=== PATIENT | female | born 1980 | race Caucasian/White ===

== ENCOUNTER → 2016-05-22 | Outpatient (CLI) | payer OTHER ==
--- NOTE | 2016-05-22 18:15 | REP ---
LEFT KNEE FIVE VIEWS: HISTORY: Contusion. There is no acute fracture or dislocation. The joint spaces are normal in appearance. IMPRESSION: There is no acute fracture or dislocation. Signed by Boogie George MD 05/23/2016 08:20 A
== END ==
LOC: M WUC 15:00
PROVIDERS: ATTEND Physician Assistant
DX: S80.02XA Contusion of left knee, initial encounter (principal); X58.XXXA Exposure to other specified factors, initial encounter; Y92.89 Other specified places as the place of occurrence of the external cause; Y93.89 Activity, other specified; Y99.8 Other external cause status

== ENCOUNTER → 2016-07-17 | Outpatient (REF) | payer OTHER | LOC: M SFHCWAGY 11:05 | PROVIDERS: ATTEND Nurse Practitioner Women's Health | DX: Z12.4 Encounter for screening for malignant neoplasm of cervix (principal) ==

== ENCOUNTER → 2016-07-27 | Outpatient (REF) | payer OTHER | LOC: M LAB REF 22:10 | PROVIDERS: ATTEND Physician Assistant Medical | DX: N39.0 Urinary tract infection, site not specified (principal) ==

== ENCOUNTER → 2016-12-17 | Outpatient (CLI) | payer OTHER ==
--- NOTE | 2016-12-17 16:26 | REP ---
UNILATERAL RIGHT RIBS, PA CHEST: HISTORY: Contusion. The lungs are clear. The heart is normal in size. The pulmonary vasculature is normal in appearance. The bony structure is intact. IMPRESSION:No acute disease. Signed by Boogie George MD 12/17/2016 04:28 P
== END ==
LOC: M WUC 11:53
PROVIDERS: ATTEND Physician Assistant
DX: S20.211A Contusion of right front wall of thorax, initial encounter (principal); X58.XXXA Exposure to other specified factors, initial encounter; Y92.89 Other specified places as the place of occurrence of the external cause; Y93.89 Activity, other specified; Y99.8 Other external cause status

== ENCOUNTER → 2017-10-02 | Outpatient (CLI) | payer OTHER | LOC: M WHC 13:44 | DX: D25.2 Subserosal leiomyoma of uterus (principal); N88.8 Other specified noninflammatory disorders of cervix uteri; N93.9 Abnormal uterine and vaginal bleeding, unspecified | CPT/HCPCS: 76830 ==

== ENCOUNTER → 2017-11-11 | Outpatient (REF) | payer OTHER ==
[2017-11-14 14:57] LABS: HPV HYBRID CAPTURE II Negative (Negative)
== END ==
LOC: M SFHCWAGY 09:24
DX: Z12.4 Encounter for screening for malignant neoplasm of cervix (principal)
CPT/HCPCS: G0123

== ENCOUNTER → 2018-02-25 | Outpatient (REF) | payer OTHER | LOC: M LAB REF 17:27 | DX: D25.9 Leiomyoma of uterus, unspecified (principal) | CPT/HCPCS: 88305 ==

== ENCOUNTER 2018-04-24 05:52 | Day surgery (SDC) | payer BC ==
[~2018-04-24] VITALS: Ht 154.9 cm; Wt 65.3 kg
[~2018-04-24 05:52] MED LIST: HYDR-3719 PO; PERCOCET PO; SOMA350T PO; XANA1TAB2 PO
[2018-04-24 06:24] LABS: HEMATOCRIT 40.2 % (36.0-47.0); HEMOGLOBIN 13.3 g/dl (12.0-15.5); MEAN CORPUSCULAR HEMOGLOBIN 31.5 pg (27.0-33.0); MEAN CORPUSCULAR HGB CONC 33.1 g/dl (32.0-36.5); MEAN CORPUSCULAR VOLUME 95.3 fl (80.0-96.0); PLATELET COUNT, AUTOMATED 396 10^3/uL (150-450); RED BLOOD COUNT 4.22 10^6/uL (4.00-5.40); WHITE BLOOD COUNT 9.2 10^3/uL (4.0-10.0)
[2018-04-24] MEDS ORDERED: IBUP-359 PO (06:53)
[2018-04-24] MEDS ORDERED: LR 1,000 ML IV SCH ×3 (07:00→10:15)
[2018-04-24] MEDS ORDERED: ROCURONIUM BROMIDE 50 MG/5 ML VIAL As Ordered ONE ×2 (07:10→08:18)
[2018-04-24] MEDS ORDERED: ONDANSETRON 4MG/2ML VIAL (J2405) As Ordered ONE (07:10)
[2018-04-24] MEDS ORDERED: PROPOFOL 200 MG/20 ML VIAL As Ordered ONE (07:10)
[2018-04-24] MEDS ORDERED: LIDOCAINE 2% INJ 100 MG/5 ML SDV (FOR ANES.) As Ordered ONE (07:10)
[2018-04-24] MEDS ORDERED: dexameTHASONE 4 MG/ML 1ML VIAL (J1100) As Ordered ONE (07:10)
[2018-04-24] MEDS ORDERED: fentaNYL 100 MCG/2 ML INJECTION (J3010) As Ordered ONE ×2 (07:11→10:02)
[2018-04-24] MEDS ORDERED: MIDAZOLAM INJ 2 MG/2 ML VIAL (J2250) As Ordered ONE (07:11)
[2018-04-24] MEDS ORDERED: HYDROmorphone HCL 2 MG/ML 1ML VIAL (J1170) As Ordered ONE (07:12)
[2018-04-24] MEDS ORDERED: BUPIVACAINE HCL 0.25% 30 ML VIAL As Ordered ONE (07:13)
[2018-04-24] MEDS ORDERED: METHYLENE BLUE 0.5% (5MG/ML) 10 ML AMP (PROVAYBLUE)(Q9968 PER 1MG) As Ordered ONE (07:13)
[2018-04-24] MEDS ORDERED: SUGAMMADEX SODIUM 500 MG/5 ML VIAL (BRIDION) As Ordered ONE (08:21)
[2018-04-24] MEDS ORDERED: KETOROLAC 60 MG/2 ML VIAL (J1885) As Ordered ONE (08:21)
[2018-04-24] MEDS ORDERED: ePHEDrine SULFATE 25 MG/5 ML(5MG/ML) SYRINGE As Ordered ONE (08:56)
[2018-04-24] MEDS ORDERED: PERCOCET 5MG/325MG TAB As Ordered ONE (10:02)
[2018-04-24] MEDS: PERCOCET 5MG/325MG TAB PO PRN ×2 (10:05→10:35)
[2018-04-24] MEDS: fentaNYL 100 MCG/2 ML INJECTION (J3010) IV PRN ×2 (10:05→10:10)
[2018-04-24] MEDS ORDERED: MORPHINE 4 MG/ML 1ML VIAL/SYRINGE (J2270) IV PRN (10:15)
[2018-04-24] MEDS ORDERED: PERCOCET 5MG/325MG TAB PO PRN ×2 (10:15)
[2018-04-24] MEDS ORDERED: ONDANSETRON 4MG/2ML VIAL (J2405) IV PRN (10:15)
[2018-04-24] MEDS ORDERED: PROMETHAZINE INJ 25 MG/ML VIAL (J2550) IV PRN (10:15)
[2018-04-24] MEDS ORDERED: zolPIDEM TARTRATE 10MG TAB PO PRN (10:15)
[2018-04-24] MEDS ORDERED: HYDROMORPHONE HCL 0.5 MG/ 0.5 ML SYRINGE (J1170 PER 1) IV PRN (10:15)
--- NOTE | 2018-04-24 10:41 | RO ---
DATE OF PROCEDURE: 04/24/2018 PREPROCEDURE DIAGNOSIS: 1. Abnormal uterine bleeding. 2. Fibroid uterus. POSTPROCEDURE DIAGNOSIS: 1. Abnormal uterine bleeding. 2. Fibroid uterus. PROCEDURE: Robotic assisted laparoscopic hysterectomy. Bilateral salpingectomy. Cystoscopy. SURGEON: Dr. Rosalind Thakkar PLANT [employer]EDER SCIENTIST: Gwendolyn Honeycutt NP ANESTHESIA: General endotracheal anesthesia. ESTIMATED BLOOD LOSS: 50 mL. INTRAVENOUS FLUIDS: 1500 mL lactated Ringer solution. URINE OUTPUT: 100 mL. PREOPERATIVE ANTIBIOTICS: 2 grams of Ancef. OPERATIVE FINDINGS: Patient with bilateral Filshie clips consistent with history, normal appearing adnexa, large approximately 5 cm pedunculated fundal right fibroid. CYSTOSCOPIC FINDINGS: Normal bladder mucosa. Bilateral ureteral jets. No foreign objects identified on cystoscopy. DESCRIPTION OF PROCEDURE: After informed consent was obtained and written content was reviewed, the patient was brought to the operating room where general endotracheal anesthesia was obtained. She was then placed in lithotomy position and was prepped and draped in a normal sterile fashion. A time out in the operating room was then performed identifying the patient, the procedure to be performed, as well as drug allergies. A speculum was then placed revealing the cervix. The anterior and posterior aspects of the cervix were stitched with #0 Vicryl. The uterus was sounded to 8 cm. An extra large VCare uterine manipulator was advanced through the cervical os for means to manipulate the uterus. The cervical cap as well as the vaginal sleeve was applied to the vagina. The speculum was removed. The Henry catheter was then placed and set to gravity. Gloves were changed. Attention was turned to the patient's abdomen where a Veress needle was placed through the umbilicus and a pneumoperitoneum was obtained with CO2 gas. The supraumbilical area was infused with 0.25% Marcaine. An incision was made in this area. An 11 mm trocar and sleeve was advanced through this incision. The laparoscope was then replaced revealing intra-abdominal placement. Three additional port sites were placed, two to the left side of the patient's abdomen and one to the right. These areas were infused with 0.25% Marcaine and in each one of these areas an incision was made and 8 mm trocars and sleeves advanced through each one of these incisions under direct visualization. Next, the da Serge was then docked utilizing a camera arm and two operative arms. The patient's abdomen was then surveyed with the above noted findings. Bilateral salpingectomies were then performed. The right fallopian tube was placed on traction and it was transected at the level of the uterus. The mesosalpinx was cauterized and ligated with good hemostasis noted. The specimen was then brought out through the port site along with the Filshie clip. In a similar fashion, the left fallopian tube was placed on traction utilizing a vessel sealer the left fallopian tube was transected at the level of the uterus. The mesosalpinx was further dissected using the vessel sealer and the specimen was brought out through the port site along with the Filshie clip. Next, the utero-ovarian ligaments were cauterized and ligated with good hemostasis noted. The round ligaments were then cauterized and ligated with good hemostasis noted. The anterior lip of the broad ligaments were then cauterized and ligated and dissected along the bladder creating a bladder flap. The remainder of the broad and cardinal ligaments were then cauterized and ligated with good hemostasis noted. The uterine vessels were then skeletonized bilaterally and were cauterized and ligated using the vessel sealer with good hemostasis noted. Next, anterior and posterior colpotomies were made utilizing monopolar scissors. The uterus was then brought out through the vaginal incision. The surgical sites were inspected and noted to be hemostatic. The vaginal cuff was then closed with #2-0 V-loc system in a running fashion. The surgical sites were irrigated and suctioned. Tesfaye was applied over the surgical field. The pneumoperitoneum was then released. Next, the cystoscopy was performed utilizing a 70 degrees scope. This was advanced transurethrally through the bladder. The bladder was surveyed showing normal bladder mucosa and no foreign bodies. Bilateral ureteral were observed. The cystoscope was then removed. The bladder was drained. The gloves were changed. Attention was turned to the patient's abdomen where all four port sites were closed with #4-0 Monocryl and dressed with Dermabond. The patient was then taken out of lithotomy position and was awakened from general anesthesia and taken to recovery in stable condition. Counts were correct. Gwendolyn Honeycutt, my rn medical surgical, played an essential role in the operation. She assisted with port placement, tissue retraction and identification of structures, as well as, wound closure.
[2018-04-24 11:00] VITALS: BP 125/63
[2018-04-24 12:00] VITALS: BP 122/76
[2018-04-24 13:00] VITALS: BP_SYST 119; BP_SYST 122; BP_DIAS 74; BP_DIAS 76
[2018-04-24 13:30] VITALS: BP 103/61
[2018-04-24] MEDS ORDERED: KETOROLAC 30 MG/ML VIAL (J1885) IV SCH (15:00)
== END 2018-04-24 14:50 | disposition home or self-care (01) ==
LOC: M SDC 05:52 → M PED 11:16 → M SDC 14:50
PROVIDERS: ATTEND Obstetrics & Gynecology
DX: N92.6 Irregular menstruation, unspecified (principal); D25.1 Intramural leiomyoma of uterus; D25.2 Subserosal leiomyoma of uterus; N72 Inflammatory disease of cervix uteri; K21.9 Gastro-esophageal reflux disease without esophagitis; Z88.2 Allergy status to sulfonamides; F41.9 Anxiety disorder, unspecified; Z79.899 Other long term (current) drug therapy; F17.210 Nicotine dependence, cigarettes, uncomplicated
CPT/HCPCS: 36415; 58571; 85027; 86850; 86900; 86901; 88309; J0690; J1100; J1170; J1885; J2250; J2405; J3010

== ENCOUNTER 2018-09-30 08:10 | Inpatient (IN) | payer BC ==
[~2018-09-30] VITALS: Ht 154.9 cm; Wt 69.7 kg
[~2018-09-30 08:10] MED LIST changes: +IBUP-359 PO
[2018-09-30 09:31] LABS: HEMATOCRIT 38.4 % (36.0-47.0); HEMOGLOBIN 12.5 g/dl (12.0-15.5); MEAN CORPUSCULAR HEMOGLOBIN 31.5 pg (27.0-33.0); MEAN CORPUSCULAR HGB CONC 32.6 g/dl (32.0-36.5); MEAN CORPUSCULAR VOLUME 96.7 fl (80.0-96.0); PLATELET COUNT, AUTOMATED 399 10^3/uL (150-450); RED BLOOD COUNT 3.97 10^6/uL (4.00-5.40); WHITE BLOOD COUNT 10.7 10^3/uL (4.0-10.0)
[2018-09-30] MEDS ORDERED: HYDR-3719 PO (09:38)
[2018-09-30] MEDS ORDERED: CYCL10TA PO (09:38)
[2018-09-30] MEDS ORDERED: LORA1TAB4 PO (09:38)
[2018-09-30] MEDS ORDERED: PHEN-239 PO (09:38)
[2018-09-30 09:56] LABS: AMPHETAMINES LEVEL URINE POSITIVE (NEGATIVE); BARBITURATES URINE NEGATIVE (NEGATIVE); BENZODIAZEPINES URINE NEGATIVE (NEGATIVE); CANNABINOIDS URINE NEGATIVE (NEGATIVE); COCAINE METABOLITE URINE NEGATIVE (NEGATIVE); METHADONE URINE NEGATIVE (NEGATIVE); OPIATES URINE POSITIVE (NEGATIVE); PHENCYCLIDINE URINE NEGATIVE (NEGATIVE)
[2018-09-30 10:07] LABS: ACETAMINOPHEN LEVEL < 2.0 UG/ML (10.0-30.0); ALBUMIN 4.1 GM/DL (3.2-5.2); ALT/SGPT 36 U/L (12-78); BILIRUBIN,DIRECT < 0.1 MG/DL (0.0-0.2); BILIRUBIN,TOTAL 0.2 MG/DL (0.2-1.0); BLOOD UREA NITROGEN 6 MG/DL (7-18); CALCIUM LEVEL 9.5 MG/DL (8.5-10.1); CARBON DIOXIDE LEVEL 29 MEQ/L (21-32); CHLORIDE LEVEL 104 MEQ/L (98-107); CREATININE FOR GFR 0.77 MG/DL (0.55-1.30); ETHYL ALCOHOL (ETHANOL) < 0.003 % (0.000-0.010); GLOMERULAR FILTRATION RATE > 60.0 (>58); GLUCOSE, FASTING 94 MG/DL (70-100); SALICYLATE LEVEL 3.4 MG/DL (5.0-30.0); SODIUM LEVEL 139 MEQ/L (136-145); THYROID STIMULATING HORMONE 0.934 uIU/ML (0.358-3.740); TOTAL PROTEIN 7.7 GM/DL (6.4-8.2)
[2018-09-30] MEDS ORDERED: LORazepam 1 MG TAB PO STA (13:27)
[2018-09-30] MEDS ORDERED: MAALOX 30 ML SUSP *UDC PO PRN (14:30)
[2018-09-30] MEDS ORDERED: MOM 30ML SUSPENSION UDC PO PRN (14:30)
[2018-09-30] MEDS ORDERED: traZODone 50 MG TAB PO PRN (14:30)
[2018-09-30 17:08] VITALS: BP 147/77
[2018-09-30] MEDS: OLANZapine ORAL DISINTEGRATING TAB 5MG PO PRN (21:30)
[2018-10-01 06:44] VITALS: BP 116/85
--- NOTE | 2018-10-01 07:40 | HPEPDOC ---
General Date of Admission Sep 30, 2018 at 14:21 Date of Service: Oct 01, 2018 Attending Physician: MEMO OQUENDO MD Chief Complaint The patient is a 38-year-old female admitted with a reason for visit of Dissociative Disorder. History of Present Illness Patient is a 38-year-old female, brought to the emergency room by family member who felt patient needed to speak to someone about her symptoms. Patient has not been sleeping. Apparently patient was involved in testifying in a murder trial, a long time ago which led to a conviction. Now that the suspect is out of [facility] and lives in this town. Patient has reported to friends and family sightings of someone in her yard driveway, or car. Admitted on account of possible paranoia with visual hallucinations. On assessment, she denies chest pain, shortness of breath, weakness, abdominal pain, nausea, chills or fever. Home Medications Scheduled Phentermine HCl (Phentermine HCl) 37.5 Mg Capsule, 37.5 MG PO DAILY, (Reported) Scheduled PRN Cyclobenzaprine HCl (Cyclobenzaprine HCl) 10 Mg Tablet, 10 MG PO TID PRN for SPASMS, (Reported) Hydrocodone/Acetaminophen (Hydrocodone-Acetamin 10-325 mg) 1 Each Tablet, 1 TAB PO Q4H PRN for PAIN, (Reported) Lorazepam (Lorazepam) 1 Mg Tablet, 1 MG PO BID PRN for ANXIETY/AGITATION, (Reported) Allergies Coded Allergies: Sulfa (Sulfonamide Antibiotics) (Verified Allergy, Unknown, rash/itching, 09/30/18) bupropion (Verified Allergy, Unknown, itching, 09/30/18) Past Medical History Medical History Anxiety Nicotine dependence Surgical History Hysterectomy Tubal ligation Cholecystectomy Family History Father: Atrial fibrillation, hyperlipidemia Social History Smokes 1/4 PPD cigarettes per day, occasional alcohol intake, denies polysubstance abuse A-FIB/CHADSVASC A-FIB History Current/History of A-Fib/PAF?: No Current PO Anticoag Therapy: No Review of Systems Other systems A 10 point pertinent review of systems was completed, negative except as stated in the history of presenting illness. Physical Examination Other physical findings GENERAL: NAD SKIN : Warm, dry intact HEENT: Atraumatic, normocephalic, PERRL, moist mucous membrane CARDIOVASCULAR: Regular rate and rhythm, S1S2, no JVD, no edema, distal pulses + and palpable RESP: CTAB, no accessory muscle use noted ABDOMEN: BS+ non distended non tender MS: no joint deformities NEURO: Alert and oriented x 3, CN2-12 grossly intact PSYCH: no anxiety or agitation, appropriate mood and affect. Vital Signs Vital Signs Date Time Temp Pulse Resp B/P (MAP) Pulse Ox O2 Delivery O2 Flow Rate FiO2 10/01/18 06:44 98.2 104 14 116/85 (95) 09/30/18 17:08 99 09/30/18 13:53 Room Air Laboratory Data Labs 24H Laboratory Tests 2 09/30/18 09:12: Nucleated Red Blood Cells % (auto) 0.0, Anion Gap 6L, Glomerular Filtration Rate > 60.0, Calcium Level 9.5, Aspartate Amino Transf (AST/SGOT) 19, Alanine Aminotransferase (ALT/SGPT) 36, Alkaline Phosphatase 121H, Total Bilirubin 0.2, Direct Bilirubin < 0.1, Total Protein 7.7, Albumin 4.1, Albumin/Globulin Ratio 1.14, Thyroid Stimulating Hormone (TSH) 0.934, Salicylates Level 3.4L, Urine Amphetamines Screen POSITIVEH, Urine Benzodiazepines Screen NEGATIVE, Urine Opiates Screen POSITIVEH, Urine Methadone Screen NEGATIVE, Acetaminophen Level < 2.0L, Urine Barbiturates Screen NEGATIVE, Urine Phencyclidine Screen NEGATIVE, Urine Cocaine Metabolite Screen NEGATIVE, Urine Cannabinoids Screen NEGATIVE, Ethyl Alcohol Level < 0.003 CBC/BMP Laboratory Tests 09/30/18 09:12 Red Blood Count 3.97 L, Mean Corpuscular Volume 96.7 H, Mean Corpuscular Hemoglobin 31.5, Mean Corpuscular Hemoglobin Concent 32.6, Red Cell Distribution Width 12.5 Assessment/Plan Anxiety disorder Nicotine dependence Paranoia with visual hallucinations Plan At this time patient has no underlying medical comorbidities requiring evaluation and management. Management of acute paranoia, anxiety, nicotine dependence, by primary team. Please reconsult medical team as needed. Plan / VTE VTE Prophylaxis Ordered?: No VTE Exclusion Mechanical Proph: Low Risk for VTE ABIOLA ZARATE Oct 01, 2018 07:40
[2018-10-01] MEDS: OLANZapine ORAL DISINTEGRATING TAB 5MG PO PRN (09:01)
[2018-10-01] MEDS: ACETAMINOPHEN TAB 650MG DOSE (2X325MG) PO PRN ×2 (09:02→14:45)
--- NOTE | 2018-10-01 15:07 | MHHPEPDOC ---
General Date Of Admission: Sep 30, 2018 Legal Status: 9.39 Chief Complaint "someone is watching me from back yard." History of Present Illness HISTORY OF THE PRESENT ILLNESS: Patient is a 38 -year-old , female, with no previous psych history who was brought to the ED by her daughter who stated "she need to talk to some one about some issues... I don't think she's a danger to herself or others" per ED. In the ED the pt endorsed insomnia, anxiety, fear, paranoia as she believes some one is watching her from her back yard and has asked multiple family members and friends to investigate each time she believes she sees a man but when investigated no one is found. Pt's daughter relates these symptoms possibly being due to the fact that the pt testified for a murder trial when she was a teen against a man who was convicted of murder due to murdering one of his and and her friends, the man serving his time and now has been out of [facility] since 11/2017 and currently lives in [place]. Pt denied SI/HI, hallucinations in the ED but did appear confused at times. Psychiatric Review of Systems Depression (2 or more weeks): depressed mood, insomnia/hypersomnia (insomnia), difficulty concentrating Raquel (4 or more days of): denies Psychosis: paranoia PTSD: history of trauma, hypervigilance Anxiety: situational anxiety, stressor related anxiety Anxiety/ 6 months or more of: restlessness, keyed up, sleep disturbance Past Psychiatric History Previous Psychiatric Diagnosis: denies Previous Psychiatric Admissions: denies Suicide Attempts: denies Psychiatric Follow-up: denies Psychiatric medications: ativan 1mg bid Past Medical History Medical Problems chronic pain takes hydrocodone, flexeril, and phentermine outpatient Head Injury: No Seizures: No Hospitalizations: No Surgeries: Yes (hysterectomy, tubal ligation, cholonoscopy) Addiction History amphetamines (Rx phentramine, utox pos), opioids (Rx hydrocodone, utox pos) Social History Childhood: [place] [facility] [place] [facility] 2 [place] home, grew up with siblings, good childhood Abuse/Trauma:referrer to HPI regarding pt testimony in murder trial Current Living Situation: lives with aandchildren in [place] Education: high school grad 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 [employer] Social Support: family, friends Legal: denies Marital: , 2 kids Mental Status Examination General Appearance: well groomed, appears stated age, hospital scubs/clothing Build: overweight Demeanor: average Eye Contact: average Activity: average Behavior: cooperative Speech: clear, spontaneous, reg/rate,rhythm,volume Mood: euthymic, anxious Mood "fine" Affect: full, appropriate, congruent, anxious Thought Process: logical/linear, intact Thought Content (Delusions): paranoia, delusions Thought Content (Other): appears paranoid Thought Content (Aggressive): none reported Perception (Hallucinations): none reported Perception (Other): none reported Cognition (Impairment of): none reported Cognition(Intelligence Est.): average Oriented: Awake, Alert, Oriented times three Insight: fair Judgment: Good Psychosis: Denies Diagnoses Paranoid Delusional d/o PTSD r/o substance induced psychosis - phentramine (now resolved) amphetamine/opiate use d/o A-FIB/CHADSVASC A-FIB History Current/History of A-Fib/PAF?: No Current PO Anticoag Therapy: No Treatment Treatment ordered: NONE Reason Anticoagulant not given: Not indicated/[id number] Assessment Pt seen and states she doesn't remember yesterday other than her daughter bring her to ED and seeing "people like lighting bugs like they were from the [place] coming at her and disappearing like it was Halloween." Per staff when pt brought to unit she was having VH of bugs and trying to pop them, agitation, confusion. Pt states she feels a lot better today "like my normal self" and denies confusion, visual hallucinations. States she took phentramine once yesterday which is most likely cause of confusion, VH, delirium. Pt does endorse paranoia and hypervigilance due to the belief of seeing some one walking around a night with a flash light watching her at night a few times for the past 1-1/5months. Does relate it to the murder felon (her ex-boyfriend as a teen) being out of [facility] and almost placed in housing at the end of her [address] until she fought the parole board to stop. Discussed starting risperdal for paranoia and agreeable, Risks/benefits discussed. Denies SI/HI, hallucinations. Feels safe here. Initial Treatment Plan 1. Patient was admitted on a 9.39 status. 2. Complete history was obtained. 3. With patients permission, family will be contacted and database will be expanded. 4. Patients medication regimen will be reviewed and changed accordingly. 5. Patient will be provided with protected environment. 6. Patient will be treated with individual, group, and milieu therapies. 7. Patient will receive supportive psych-education. 8. Discharge planning will commence immediately. 9. Outpatient follow-up treatment will be strongly recommended. 10. The initial treatment plan will focus initially on: * Depression. * Risk for suicide. * Substance abuse. 11. start risperdal 1mg qhs, prn vistaril ESTIMATED LENGTH OF STAY: 5-7 DAYS. TIME SPENT COUNSELING AND COORDINATING INITIAL CARE: 60 minutes. Vital Signs Vital Signs Date Time Temp Pulse Resp B/P (MAP) Pulse Ox O2 Delivery O2 Flow Rate FiO2 10/01/18 06:44 98.2 104 14 116/85 (95) 09/30/18 17:08 99 09/30/18 13:53 Room Air Medications Scheduled Phentermine HCl (Phentermine HCl) 37.5 Mg Capsule, 37.5 MG PO DAILY, (Reported) Scheduled PRN Cyclobenzaprine HCl (Cyclobenzaprine HCl) 10 Mg Tablet, 10 MG PO TID PRN for SPASMS, (Reported) Hydrocodone/Acetaminophen (Hydrocodone-Acetamin 10-325 mg) 1 Each Tablet, 1 TAB PO Q4H PRN for PAIN, (Reported) Lorazepam (Lorazepam) 1 Mg Tablet, 1 MG PO BID PRN for ANXIETY/AGITATION, (Reported) Allergies Coded Allergies: Sulfa (Sulfonamide Antibiotics) (Verified Allergy, Unknown, rash/itching, 09/30/18) bupropion (Verified Allergy, Unknown, itching, 09/30/18) NATALIE PHELAN DO Oct 01, 2018 15:07
[2018-10-01] MEDS ORDERED: hydrOXYzine 25 MG TAB PO PRN (15:15)
[2018-10-01 18:00] VITALS: BP 132/86
[2018-10-01] MEDS ORDERED: risperiDONE 1 MG TAB PO SCH (21:00)
[2018-10-02 07:07] VITALS: BP 120/81
[2018-10-02] MEDS: ACETAMINOPHEN TAB 650MG DOSE (2X325MG) PO PRN (11:34)
--- NOTE | 2018-10-02 12:20 | MHCRPDOC ---
[facility] Consultation Vital Signs Vital Signs Date Time Temp Pulse Resp B/P (MAP) Pulse Ox O2 Delivery O2 Flow Rate FiO2 10/02/18 07:07 98.2 103 14 120/81 (94) 09/30/18 17:08 99 09/30/18 13:53 Room Air Home Medications Current Medications Current Medications Acetaminophen (Tylenol Tab) 650 mg Q6HP PRN PO HEADACHE or DISCOMFORT Last administered on 10/02/18at 11:34; Start 09/30/18 at 14:30 Al Hydrox/Mg Hydrox/Simethicone (Mylanta) 30 ml Q4HP PRN PO HEARTBURN/INDIGESTION; Start 09/30/18 at 14:30 Home Med (Med Rec Complete!) ASDIRECTED XX ; Start 09/30/18 at 14:00; Stop 09/30/18 at 14:00; Status DC Hydroxyzine HCl (Atarax) 25 mg Q6HP PRN PO ANXIETY; Start 10/01/18 at 15:15 Lorazepam (Ativan) 1 mg STAT STAT PO Last administered on 09/30/18at 13:50; Start 09/30/18 at 13:27; Stop 09/30/18 at 13:28; Status DC Magnesium Hydroxide (Milk Of Magnesia) 30 ml DAILYPRN PRN PO CONSTIPATION; Start 09/30/18 at 14:30 Olanzapine (ZyPREXA ZYDIS) 5 mg Q4HP PRN PO AGITATION Last administered on 10/01/18at 09:01; Start 09/30/18 at 14:30 Risperidone (RisperDAL) 1 mg QHS PO Last administered on 10/01/18at 21:02; Start 10/01/18 at 21:00; Stop 10/02/18 at 10:54; Status DC Trazodone HCl (Desyrel) 50 mg QHSP PRN PO INSOMNIA Last administered on 09/30/18at 21:30; Start 09/30/18 at 14:30 Scheduled PRN Cyclobenzaprine HCl (Cyclobenzaprine HCl) 10 Mg Tablet, 10 MG PO TID PRN for SPASMS, (Reported) Hydrocodone/Acetaminophen (Hydrocodone-Acetamin 10-325 mg) 1 Each Tablet, 1 TAB PO Q4H PRN for PAIN, (Reported) Lorazepam (Lorazepam) 1 Mg Tablet, 1 MG PO BID PRN for ANXIETY/AGITATION, (Reported) Allergies Coded Allergies: Sulfa (Sulfonamide Antibiotics) (Verified Allergy, Unknown, rash/itching, 09/30/18) bupropion (Verified Allergy, Unknown, itching, 09/30/18) NICHOL SOMERS DO Oct 02, 2018 12:20
--- NOTE | 2018-10-02 12:31 | MHDSPDOC ---
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 PTSD, chronic. History of Present Illness The patient a 38-year-old woman was admitted to [facility] emergency room after demonstrating bizarre and paranoid ideation as well as dissociative symptoms. Her family were fairly concerned and brought her in for evaluation. Subsequently, after collateral information was gathered, it was revealed that the patient had recently started on phentermine, a diet supplement from her primary care doctor, due to reported difficulties with weight gain. The patient has a significant history of trauma that is complex and nuanced, but has been generally stable without significant need for psychiatric treatment for the last 25 years. Consultants Involved Hospitalist/PCP screening Treatment and Progress On The Unit The patient was admitted to the inpatient unit for observation and she was subsequently started on 1 mg of risperidone. However, she had resolved prior in terms of her symptoms where it became fairly clear that the patient's psychosis was likely due to her phentermine that had been started the day of admission. The patient regained full insight and the risperidone was subsequently stopped as it was clear that the patient's substance-induced psychosis had resolved spontaneously. The patient did demonstrate symptoms consistent with chronic PTSD, but had generally been coping with it fairly well for many years. She was subsequently deemed ready for discharge as she returned to her baseline state. Discussed with the patient at length the risks of weight loss supplements and the potential problems. Discharge Assessment The patient a 38-year-old woman with a history of chronic PTSD presents in a psychotic state secondary to phentermine likely provoking a dissociative/psychotic episode due to her pre-existing history of PTSD. She spontaneously resolved without need for significant antipsychotic treatment. She will likely do well with long-term therapy due to the nature of her PTSD. How ever, at this time in my clinical judgment, she is safe to return home and will continue to be at her baseline level of risk, which is low for self harm at this time. Mental Status Examination General: Well dressed with good hygiene Speech: Spontaneous and fluid Thought processes: Linear and logical MSK: Smooth and coordinated gait, no signs of tremors or involuntary orofacial movements Thought content: Future orientated Abstract reasoning, and computation: Intact Description of associations: Intact Description of abnormal or psychotic thoughts: Denies any suicidal or homicidal ideation. Denies any auditory or visual hallucinations. Does not appear to be responding to internal stimuli. Does not appear to be endorsing any bizarre or paranoid ideation. Judgment: fair Insight: fair Orientation: Alert and orientated 3 Cognition: Grossly normal Recent and remote memory: Intact Attention span and concentration: Intact Fund of knowledge: Adequate Mood: "okay" Affect: Euthymic with a full range Follow Up The patient was not started on any medications or sent home with any as it was very likely the patient's symptoms are entirely due to substance-induced psychosis. At a later time, therapy would be most helpful for her chronic PTSD. However, her symptoms of her chronic PTSD at baseline are not severe enough to warrant medications for at this time. The social work team worked during the predischarge meeting in order to evaluate for further issues of lethality address them fully before discharge. They worked on safety planning with the patient's family members in order to ensure that the patient will have a safe and effective discharge. Time Spent The amount of time spent in the coordination of care for this patient was approximately 30 minutes. Friday Vital Signs/I&Os Vital Signs Date Time Temp Pulse Resp B/P (MAP) Pulse Ox O2 Delivery O2 Flow Rate FiO2 10/02/18 07:07 98.2 103 14 120/81 (94) 09/30/18 17:08 99 09/30/18 13:53 Room Air Medications Scheduled PRN Cyclobenzaprine HCl (Cyclobenzaprine HCl) 10 Mg Tablet, 10 MG PO TID PRN for SPASMS, (Reported) Hydrocodone/Acetaminophen (Hydrocodone-Acetamin 10-325 mg) 1 Each Tablet, 1 TAB PO Q4H PRN for PAIN, (Reported) Lorazepam (Lorazepam) 1 Mg Tablet, 1 MG PO BID PRN for ANXIETY/AGITATION, (Reported) Allergies Coded Allergies: Sulfa (Sulfonamide Antibiotics) (Verified Allergy, Unknown, rash/itching, 09/30/18) bupropion (Verified Allergy, Unknown, itching, 09/30/18) NICHOL SOMERS DO Oct 02, 2018 12:31
== END 2018-10-02 14:02 | disposition home or self-care (01) | DRG 773 ==
LOC: M ED 08:10 → M ED INP 14:21 → M PSY 16:45
PROVIDERS: ADMIT Psychiatry & Neurology Addiction Medicine; ATTEND Psychiatry & Neurology Addiction Medicine
DX: F15.159 Other stimulant abuse with stimulant-induced psychotic disorder, unspecified (principal); F43.10 Post-traumatic stress disorder, unspecified; F11.10 Opioid abuse, uncomplicated; F17.210 Nicotine dependence, cigarettes, uncomplicated; Z88.2 Allergy status to sulfonamides; Z88.8 Allergy status to other drugs, medicaments and biological substances; Z79.899 Other long term (current) drug therapy

== ENCOUNTER → 2020-02-14 | Outpatient (CLI) | payer SELFPAY ==
[~2020-02-14] MED LIST changes: +CYCL-707 PO; +LORA1TAB4 PO; +PHEN-239 PO
== END ==
LOC: M LABSMTC 13:19
PROVIDERS: ATTEND Pediatrics
DX: Z20.828 Contact with and (suspected) exposure to other viral communicable diseases (principal)

== ENCOUNTER → 2020-07-14 | Outpatient (CLI) | payer OTHER ==
--- NOTE | 2020-07-14 09:43 | REP ---
INDICATION: WEIGHT LOSS COMPARISON: 12/17/2016 TECHNIQUE: PA and lateral. FINDINGS: The mediastinum and cardiac silhouette are normal. The lung porras are clear and without acute consolidation, effusion, or pneumothorax. The skeletal structures are intact and normal. IMPRESSION: No acute cardiopulmonary process. <Electronically signed by [place] > 07/14/20 0939
== END ==
LOC: M WUC 09:13
PROVIDERS: ATTEND Physician Assistant Medical
DX: R63.4 Abnormal weight loss (principal)

== ENCOUNTER → 2020-07-14 | Outpatient (CLI) | payer OTHER ==
--- NOTE | 2020-07-14 11:34 | REP ---
INDICATION: Z12.31 SCREENING MAMMO. COMPARISON: Baseline TECHNIQUE: Digital screening marked views cardio bilaterally in the CC and MLO projections using both 2D and 3D modalities. Today's examination is initial screening examination. By history, the patient has no complaints of a palpable breast abnormality or other significant breast complaints. FINDINGS: The breasts are symmetric in size and shape. Dense heterogenous somewhat nodular fibroglandular elements are seen scattered about both breasts. In the upper aspect of the right breast near the 12 o'clock position there is a potential asymmetric density. No other suspicious features are seen in either breast. The Volpara volumetric breast density pattern is b. IMPRESSION: Potential asymmetric density seen in the right breast, as described above, and for which diagnostic digital magnified spot-compression views recommended in the CC and MLO projections along with diagnostic ultrasonography if necessary. BIRADS/ACR category 0 This [facility] lifetime breast cancer risk assessment score is 16.3%. This mammogram was interpreted with the aid of an FDA-approved computer-aided detection system. The patient states she had a clinical breast exam in over a year. The patient letter being requested is M0. RECOMMENDATION: As above <Electronically signed by Kentrell Diaz > 07/14/20 [id number]
== END ==
LOC: M WHC 10:25
PROVIDERS: ATTEND Physician Assistant Medical
DX: Z12.31 Encounter for screening mammogram for malignant neoplasm of breast (principal); R92.2 Inconclusive mammogram

== ENCOUNTER → 2020-07-27 | Outpatient (CLI) | payer OTHER ==
[~2020-07-27] MED LIST changes: +E-Z-GAS II EFFERVESCENT PACKET (SODIUM BICARB./CITRIC ACID/SIMETHICONE) As Ordered ONE; +E-Z-HD 98% w/w 340GM SUSP BTL As Ordered ONE; +E-Z-PAQUE 96% w/w SUSP 176GM BTL As Ordered ONE
--- NOTE | 2020-07-27 17:20 | REP ---
INDICATION: GERD. COMPARISON: Upper GI dated 11/09/2010 TECHNIQUE: This procedure was performed by Alisa Holm RUST, under the direct supervision of Dr. Tripp. Images were reviewed with Dr. Tripp prior to dictation. Liquid barium and gas producing crystals were given in the erect position, as well as liquid barium in the prone oblique position in order to perform a double contrast upper GI examination. Additionally liquid barium was given at the end of the examination in order to perform a small-bowel follow-through. FINDINGS: The safety associate film shows no organomegaly or pathological masses. The intestinal gas pattern is unremarkable. There are surgical clips in the right upper quadrant as well as the left pelvis. The oral and pharyngeal stages of deglutition were unremarkable. Esophageal transport is prompt and efficient and there is no evidence of esophagitis, stricture, or mucosal ring. There is evidence of a small hiatal hernia. There was no gastroesophageal reflux noted . The stomach mitchell are normally outlined. The rugal folds are smooth and regular. There is no gastritis, neoplasm, or ulcerative disease. The duodenal mitchell are normally outlined. The mucosal folds are smooth and regular. There is no duodenitis, peptic ulcer disease or neoplasm. The visualized portion of the proximal small bowel appears normal in course and caliber. The barium column was followed through the small bowel to the level of the terminal ileum. Small bowel transit time is approximately 100 minutes. During fluoroscopy gentle palpation shows all loops are freely movable and pliable. There is no fixed angulated loops. The small bowel mucosal pattern is normal in course and caliber. There is no transition to suggest a partial small bowel obstruction. The terminal ileum was not visualized due to small of the bowel crowding deep in the pelvis. If imaging of the terminal ileum is of clinical significance a CT with IV and oral contrast is recommended. IMPRESSION: 1. Small hiatal hernia. 2. Terminal ileum was not visualized due to small bowel crowding deep in the pelvis. If imaging of the terminal ileum is of clinical significance a CT with IV and oral contrast is recommended. 1.2 minutes of fluoroscopy time was utilized for this procedure. Some fluoroscopic images are performed with last image hold technology. These images require no additional radiation. <Electronically signed by Alisa Holm > 07/27/20 160 <Electronically signed by Bucky Tripp > 07/27/20 [id number]
== END ==
LOC: M RAD 07:34
PROVIDERS: ATTEND Surgery
DX: K21.9 Gastro-esophageal reflux disease without esophagitis (principal)

== ENCOUNTER → 2020-08-04 | Outpatient (CLI) | payer OTHER ==
[~2020-08-04] MED LIST changes: -E-Z-GAS II EFFERVESCENT PACKET (SODIUM BICARB./CITRIC ACID/SIMETHICONE) As Ordered ONE; -E-Z-HD 98% w/w 340GM SUSP BTL As Ordered ONE; -E-Z-PAQUE 96% w/w SUSP 176GM BTL As Ordered ONE
--- NOTE | 2020-08-04 16:33 | REP ---
INDICATION: ADDITIONAL VIEWS RT BREAST. COMPARISON: Prior screening examination 07/14/2020 the only prior for comparison TECHNIQUE: Diagnostic digital magnified spot compression views of the right breast were obtained along with right breast ultrasonography over the region of interest at 12 o'clock. FINDINGS: The faintly visible nodular density seen in the right breast retroareolar region at 12 o'clock persists on the spot compression views. Ultrasonography that region shows no cystic or solid masses. IMPRESSION: BIRADS/ACR category 4 right mammogram. Faintly visible but persistent nodular density at the 12 o'clock position right breast as described above and for which biopsy is recommended. The patient letter being requested is M4. RECOMMENDATION: As above <Electronically signed by Kentrell Diaz > 08/04/20 [id number]
== END ==
LOC: M WHC 14:33
PROVIDERS: ATTEND Physician Assistant Medical
DX: Z12.31 Encounter for screening mammogram for malignant neoplasm of breast (principal)

== ENCOUNTER → 2020-09-02 | Outpatient (CLI) | payer SELFPAY ==
[~2020-09-02] MED LIST changes: +FAMO40TA3 PO; +OMEP-221 PO
== END ==
LOC: M LABSMTC 08:28
PROVIDERS: ATTEND Anesthesiology
DX: Z01.818 Encounter for other preprocedural examination (principal); Z11.52 Encounter for screening for COVID-19

== ENCOUNTER 2020-09-07 09:19 | Day surgery (SDC) | payer OTHER ==
[~2020-09-07] VITALS: Ht 177.8 cm; Wt 51.3 kg
[~2020-09-07 09:19] MED LIST changes: +NS 1,000 ML IV ONE
[2020-09-07] MEDS ORDERED: LIDOCAINE 2% 100MG/5ML SDV (FOR ANES.) As Ordered ONE (10:04)
[2020-09-07] MEDS ORDERED: propofoL 200 MG/20 ML VIAL As Ordered ONE (10:04)
[2020-09-07] MEDS ORDERED: fentaNYL 100 MCG/2 ML INJECTION (J3010) As Ordered ONE (10:07)
--- NOTE | 2020-09-07 10:37 | ROOR ---
Patient Name: Lashay Childers Procedure Date: 09/07/2020 10:21 AM Date of : 1980 Age: 40 Room: [facility] Gender: Female Note Status: Finalized Procedure: Upper GI endoscopy Indications: Suspected esophageal reflux Providers: Micah May Jr, MD Referring MD: MADISON Ledesma Requesting Provider: Medicines: Propofol per Anesthesia Complications: No immediate complications. Procedure: Pre-Anesthesia Assessment: - Prior to the procedure, a History and Physical was performed, and patient medications and allergies were reviewed. The patient is competent. The risks and benefits of the procedure and the sedation options and risks were discussed with the patient. All questions were answered and informed consent was obtained. Patient identification and proposed procedure were verified by the physician and the nurse in the pre-procedure area and in the procedure room. Mental Status Examination: alert and oriented. Airway Examination: normal oropharyngeal airway and neck mobility. Respiratory Examination: clear to auscultation. CV Examination: normal. ASA Grade Assessment: II - A patient with mild systemic disease. After reviewing the risks and benefits, the patient was deemed in satisfactory condition to undergo the procedure. The anesthesia plan was to use moderate sedation / analgesia (conscious sedation). Immediately prior to administration of medications, the patient was re-assessed for adequacy to receive sedatives. The heart rate, respiratory rate, oxygen saturations, blood pressure, adequacy of pulmonary ventilation, and response to care were monitored throughout the procedure. The physical status of the patient was re-assessed after the procedure. The Endoscope was introduced through the mouth, and advanced to the second part of duodenum. The upper GI endoscopy was accomplished without difficulty. The patient tolerated the procedure well. Findings: The upper third of the esophagus, middle third of the esophagus and lower third of the esophagus were normal. A small hiatal hernia was present. Diffuse mildly erythematous mucosa was found in the cardia, in the gastric fundus and in the gastric body. Diffuse moderate inflammation characterized by congestion (edema), erythema, friability and granularity was found in the gastric antrum. Biopsies were taken with a cold forceps for histology. The duodenal bulb, first portion of the duodenum and second portion of the duodenum were normal. Biopsies for histology were taken with a cold forceps for evaluation of celiac disease. Impression: - Normal upper third of esophagus, middle third of esophagus and lower third of esophagus. - Small hiatal hernia. - Erythematous mucosa in the cardia, gastric fundus and gastric body. - Gastritis. Biopsied. - Normal duodenal bulb, first portion of the duodenum and second portion of the duodenum. Biopsied. Recommendation: - Discharge patient to home (ambulatory). - Return to my office in 2 weeks. Procedure Code(s): --- Professional --- 32641, Esophagogastroduodenoscopy, flexible, transoral; with biopsy, single or multiple Diagnosis Code(s): --- Professional --- K44.9, Diaphragmatic hernia without obstruction or gangrene K31.89, Other diseases of stomach and duodenum K29.70, Gastritis, unspecified, without bleeding CPT copyright 2019 [employer]. All rights reserved. The codes documented in this report are preliminary and upon fur sorter review may be revised to meet current compliance requirements. Micah aMy MD Micah May Jr, MD 09/07/2020 10:37:18 AM Electronically signed by Micah May Jr, MD Number of Addenda: 0 Note Initiated On: 09/07/2020 10:21 AM Estimated Blood Loss: Estimated blood loss: none.
--- NOTE | 2020-09-07 10:50 | ROOR ---
Patient Name: Lashay Childers Procedure Date: 09/07/2020 10:22 AM Date of : 1980 Age: 40 Room: [facility] Gender: Female Note Status: Finalized Procedure: Colonoscopy Indications: Chronic diarrhea Providers: Micah May Jr, MD Referring MD: MADISON Ledesma Requesting Provider: Medicines: Propofol per Anesthesia Complications: No immediate complications. Procedure: Pre-Anesthesia Assessment: - Prior to the procedure, a History and Physical was performed, and patient medications and allergies were reviewed. The patient is competent. The risks and benefits of the procedure and the sedation options and risks were discussed with the patient. All questions were answered and informed consent was obtained. Patient identification and proposed procedure were verified by the physician and the nurse in the pre-procedure area and in the procedure room. Mental Status Examination: alert and oriented. Airway Examination: normal oropharyngeal airway and neck mobility. Respiratory Examination: clear to auscultation. CV Examination: normal. ASA Grade Assessment: II - A patient with mild systemic disease. After reviewing the risks and benefits, the patient was deemed in satisfactory condition to undergo the procedure. The anesthesia plan was to use moderate sedation / analgesia (conscious sedation). Immediately prior to administration of medications, the patient was re-assessed for adequacy to receive sedatives. The heart rate, respiratory rate, oxygen saturations, blood pressure, adequacy of pulmonary ventilation, and response to care were monitored throughout the procedure. The physical status of the patient was re-assessed after the procedure. The Colonoscope was introduced through the anus and advanced to the terminal ileum. The colonoscopy was performed without difficulty. The patient tolerated the procedure well. The quality of the bowel preparation was fair. Findings: The terminal ileum appeared normal. Biopsies were taken with a cold forceps for histology. The rectum, recto-sigmoid colon, sigmoid colon, descending colon, transverse colon, ascending colon, cecum, appendiceal orifice and ileocecal valve appeared normal. Biopsies for histology were taken with a cold forceps from the ascending colon, transverse colon, descending colon and sigmoid colon for evaluation of microscopic colitis. Impression: - Preparation of the colon was fair. - The examined portion of the ileum was normal. Biopsied. - The rectum, recto-sigmoid colon, sigmoid colon, descending colon, transverse colon, ascending colon, cecum, appendiceal orifice and ileocecal valve are normal. Biopsied. Recommendation: - Discharge patient to home (ambulatory). - Repeat colonoscopy in 10 years for screening purposes. Procedure Code(s): --- Professional --- 34721, Colonoscopy, flexible; with biopsy, single or multiple Diagnosis Code(s): --- Professional --- K52.9, Noninfective gastroenteritis and colitis, unspecified CPT copyright 2019 [employer]. All rights reserved. The codes documented in this report are preliminary and upon interior horticulturist review may be revised to meet current compliance requirements. Micah May MD Micah May Jr, MD 09/07/2020 10:50:40 AM Electronically signed by Micah May Jr, MD Number of Addenda: 0 Note Initiated On: 09/07/2020 10:22 AM Estimated Blood Loss: Estimated blood loss: none.
[2020-09-07 11:20] VITALS: BP 153/88
== END 2020-09-07 11:34 | disposition home or self-care (01) ==
LOC: M OPP 09:19
PROVIDERS: ATTEND Surgery
DX: K52.9 Noninfective gastroenteritis and colitis, unspecified (principal); D12.6 Benign neoplasm of colon, unspecified; K44.9 Diaphragmatic hernia without obstruction or gangrene; K31.89 Other diseases of stomach and duodenum; R12 Heartburn; K29.70 Gastritis, unspecified, without bleeding; F17.210 Nicotine dependence, cigarettes, uncomplicated; Z79.891 Long term (current) use of opiate analgesic; Z79.899 Other long term (current) drug therapy; Z88.2 Allergy status to sulfonamides; Z88.8 Allergy status to other drugs, medicaments and biological substances
CPT/HCPCS: 43239; 45380; 88305; J3010

== ENCOUNTER 2020-10-31 11:08 | Emergency (ER) | payer OTHER ==
[~2020-10-31] VITALS: Ht 154.9 cm; Wt 50.9 kg
[~2020-10-31 11:08] MED LIST changes: -NS 1,000 ML IV ONE
[2020-10-31] MEDS ORDERED: SUCR1TAB56 PO (11:28)
[2020-10-31] MEDS ORDERED: NAPR220C14 PO (11:28)
[2020-10-31] MEDS ORDERED: LIDOCAINE 5% (LIDODERM) PATCH TD ONE (12:40)
[2020-10-31] MEDS ORDERED: diazePAM 5MG TABLET PO ONE (12:40)
[2020-10-31] MEDS ORDERED: LIDO5DIS41 TD (13:58)
[2020-10-31] MEDS ORDERED: METH-1165 PO (13:58)
[2020-10-31 14:13] VITALS: BP 160/104
[2020-10-31] MEDS ORDERED: **NOTE PATIENT COMMENT** MISC XX ONE (21:00)
--- NOTE | 2020-11-01 07:06 | ECGEPIP ---
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
== END 2020-10-31 14:12 | disposition home or self-care (01) ==
LOC: M ED 11:08
DX: M62.830 Muscle spasm of back (principal); M54.9 Dorsalgia, unspecified; K21.9 Gastro-esophageal reflux disease without esophagitis; F41.9 Anxiety disorder, unspecified; F32.9 Major depressive disorder, single episode, unspecified; F17.200 Nicotine dependence, unspecified, uncomplicated; F12.10 Cannabis abuse, uncomplicated

== ENCOUNTER → 2022-09-13 | Outpatient (REF) | payer OTHER ==
[~2022-09-13] MED LIST changes: +LIDO5DIS41 TD; +LORA1TAB23 PO; -LORA1TAB4 PO; +METH-1165 PO; +NAPR220C14 PO; -OMEP-221 PO; +OMEP40CA5 PO; +SUCR1TAB56 PO
[2022-09-13 13:17] LABS: C REACTIVE PROTEIN QUANTITATIV < 0.40 MG/DL (<1.0)
[2022-09-13 13:20] LABS: THYROGLOBULIN ANTIBODY < 15.0 U/ML (<60.0)
[2022-09-13 13:21] LABS: RHEUMATOID FACTOR QUANT < 3.5 IU/ML (<14); THYROID PEROXIDASE ANTIBODY < 28.0 U/ML (<60.0)
== END ==
LOC: M LAB REF 12:04
PROVIDERS: ATTEND Physician Assistant Medical
DX: R53.83 Other fatigue (principal); M79.10 Myalgia, unspecified site

== ENCOUNTER → 2023-04-24 | Outpatient (CLI) | payer OTHER | LOC: M RAD 09:14 | PROVIDERS: ATTEND Nurse Practitioner Family | DX: N94.10 Unspecified dyspareunia (principal) ==

== ENCOUNTER → 2023-06-19 | Outpatient (REF) | payer OTHER | LOC: M LAB REF 13:14 | PROVIDERS: ATTEND Physician Assistant Medical | DX: R10.11 Right upper quadrant pain (principal) ==

== ENCOUNTER → 2023-07-04 | Outpatient (CLI) | payer OTHER ==
[~2023-07-04] MED LIST changes: +GASTROGRAFIN SOLUTION 30ML As Ordered ONE; +ISOVUE-370 76% 100ML VIAL As Ordered ONE
== END ==
LOC: M RAD 09:22
PROVIDERS: ATTEND Physician Assistant Medical
DX: R10.11 Right upper quadrant pain (principal); K83.9 Disease of biliary tract, unspecified
CPT/HCPCS: 74177; Q9963; Q9967

== ENCOUNTER → 2023-07-28 | Outpatient (CLI) | payer OTHER ==
[~2023-07-28] MED LIST changes: -GASTROGRAFIN SOLUTION 30ML As Ordered ONE; -ISOVUE-370 76% 100ML VIAL As Ordered ONE
== END ==
LOC: M RAD 06:58
PROVIDERS: ATTEND Physician Assistant Medical
DX: R10.11 Right upper quadrant pain (principal)